=== PATIENT | female | born 1970 | race Hispanic/Latino ===

== ENCOUNTER 2024-03-06 16:03 | Emergency (ER) | payer BC ==
[~2024-03-06] VITALS: Ht 162.6 cm; Wt 74.4 kg
[2024-03-06] MEDS ORDERED: HYDROXYZINE HCL25 MG PO (17:05)
[2024-03-06] MEDS ORDERED: DESONIDE15 GM TOP (17:05)
[2024-03-06 17:56] VITALS: BP 115/62; PULSE 74; RESP 18; TEMP 98.3; O2SAT 100
== END 2024-03-06 17:22 | disposition home or self-care (01) ==
LOC: FSED 16:07
DX: L23.7 Allergic contact dermatitis due to plants, except food (principal)
CPT/HCPCS: 99283